=== PATIENT | male | born 1990 | race African-American/Black ===

== ENCOUNTER 2024-12-11 19:20 | Emergency (ER) | payer SELFPAY ==
[2024-12-11] VITALS (9 sets, daily range): BP systolic 178–209; BP diastolic 97–164; PULSE 66–85; RESP 18; TEMP 36.8; O2SAT 98–100
[2024-12-11] MEDS: KETOROLAC 30 MG/ML VIAL (*BKC) IM (19:42)
[2024-12-11] MEDS: ACETAMINOPHEN 500 MG TABLET 1000 MG PO (19:43)
--- NOTE | 2024-12-11 19:52 | ED.DENTAL ---
HPI - Dental/Oral General Chief complaint: Dental/Oral Stated complaint: Mouth pain Time Seen by Provider: 12/11/24 19:28 Source: patient Mode of arrival: ambulatory Limitations: no limitations History of Present Illness HPI Narrative: This is a 34 year old male that presents to the ER for dental pain. Ongoing since earlier today. Reports a chipped tooth that bothers him from time to time. Denies fevers. MD Complaint: tooth pain Location: Tooth # (8) Related Data Allergies Allergy/AdvReac Type Severity Reaction Status Date / Time No Known Allergies Allergy Verified 12/11/24 19:21 Review of Systems Review of Systems: All systems reviewed & are unremarkable except as noted in HPI and below PMFSH Social History Social History (Updated 12/11/24 @ 19:57 by Elisabeth Loomis PA-C) Substance use: current Substance use type: marijuana Exam Narrative: GENERAL: Well-appearing, well-nourished, and in no acute distress. HEAD: Normocephalic, atraumatic. EYES: EOMI. ENT: Nares clear, no rhinorrhea or epistaxis. Mucous membranes moist. Oropharynx without tonsillar hypertrophy exudate or other lesions. Tooth #8 is chipped NECK: Supple. No adenopathy or masses. CHEST: No respiratory distress. HEART: Regular rate EXTREMITIES: Normal range of motion. No edema. SKIN: Warm, dry, no rash. NEURO: No focal deficits. Alert and oriented x3. PSYCH: Normal mood and affect Course Vital Signs Vital signs: Vital Signs Temperature 98.2 F 12/11/24 19:26 Pulse Rate 85 12/11/24 19:26 Respiratory Rate 18 12/11/24 19:26 Blood Pressure 195/110 H 12/11/24 19:26 Pulse Oximetry 99 12/11/24 19:26 Oxygen Delivery Room Air 12/11/24 19:26 Temperature 98.2 F 12/11/24 19:26 Pulse Rate 85 12/11/24 19:26 Respiratory Rate 18 12/11/24 19:26 Blood Pressure 193/108 H 12/11/24 20:11 Pulse Oximetry 100 12/11/24 20:15 Oxygen Delivery Room Air 12/11/24 19:26 MDM - Dental/Oral MDM Narrative Medical decision making narrative: Patient presents emergency department for a toothache. He is afebrile and nontoxic appearing. No abscess noted on exam. Will be started on oral antibiotics and instructed to have follow-up with a dentist. Incidentally patient was hypertensive. This did down trend without intervention. He was instructed on the importance of close follow-up with a PCP for management of this Differential Diagnosis Differential diagnosis: Likely dental caries, toothache, dental abscess and fracture of tooth Critical Care Time Critical Care Time Critical Care Time: No Discharge Plan Discharge Clinical Impression: Toothache, Elevated blood pressure reading Patient Disposition: Home Condition: Stable Instructions: Antibiotic Form, DASH Eating Plan (ED), Hypertension (ED), Toothache (ED) Additional Instructions: Return to the Emergency Department if you experience fever >101, increasing swelling and redness of your tooth, or any other symptoms that are concerning to you Take antibiotic as prescribed. Tylenol or Ibuprofen as needed for pain. Follow up with a dentist. [facility] if needed Your blood pressure was elevated today. You need to follow up with a primary doctor for further management of this Patient Language: Citizen Of [place] Prescriptions: New amoxicillin-pot clavulanate 875-125 mg tablet 1 tablet PO Q12H 7 Days Qty: 14 0RF Follow-up/Referrals: PHYSICIAN,APPRENTICE COSMETOLOGIST [Primary Care Provider, Internal Medicine] Rodolfo Issa MD [Physician, Family Practice]
== END 2024-12-11 20:50 | disposition home or self-care (01) ==
LOC: ANHED 20:18
PROVIDERS: Emergency Provider Physician Assistant
DX: K08.89 Other specified disorders of teeth and supporting structures (principal); R03.0 Elevated blood-pressure reading, without diagnosis of hypertension
CPT/HCPCS: 96372; 99283; A9270; J1885